=== PATIENT | female | born 1975 | race Caucasian/White ===

== ENCOUNTER → 2016-09-07 | Outpatient (REF) | payer OTHER | LOC: M LAB REF 12:33 | PROVIDERS: ATTEND Physician Assistant | DX: J02.9 Acute pharyngitis, unspecified (principal) ==

== ENCOUNTER → 2018-02-04 | Outpatient (CLI) | payer BC | LOC: M RAD 10:56 | DX: Z12.31 Encounter for screening mammogram for malignant neoplasm of breast (principal) | CPT/HCPCS: 77067 ==

== ENCOUNTER → 2018-10-05 | Outpatient (CLI) | payer BC ==
--- NOTE | 2018-10-05 17:21 | REP ---
Clinical: thoracic pain. Technique: AP, lateral, and swimmers views. Findings: Alignment and kyphosis is maintained. Vertebral bodies intact. No acute fracture / compression injury or subluxation. Generalized age-related changes noted. Paravertebral soft tissues are normal. Impression: No acute fracture / compression injury or subluxation. Electronically Signed by Anton Pfeiffer MD 10/05/2018 05:13 P
== END ==
LOC: M LRY 16:43
PROVIDERS: ATTEND Physician Assistant Medical
DX: M54.6 Pain in thoracic spine (principal); Z91.81 History of falling

== ENCOUNTER → 2019-04-12 | Outpatient (CLI) | payer BC ==
--- NOTE | 2019-04-12 11:01 | REPMRS ---
Patient History The patient states she had a clinical breast exam in 2018.Family history of breast cancer at age 60 in maternal grandmother. Taking estrogen for 8 years. Digital Mammo Screening Bilat: April 12, 2019 - Exam #: [id number] Bilateral CC and MLO view(s) were taken. Technologist: Jade Haas Technologist Prior study comparison: February 04, 2018, bilateral digital mammo screening bilat performed at [facility]. FINDINGS: The breast tissue is heterogeneously dense. This may lower the sensitivity of mammography. There has been no change in the appearance of the mammogram from the prior studies. There is a moderate amount of residual fibroglandular tissue which is fairly symmetric. There is no interval development of dominant mass, areas of architectural distortion, or clustered microcalcification typical of malignancy. Assessment: BI-RADS/ACR category 1 mammogram. Negative Mammogram. Recommendation Routine screening mammogram in 1 year (for women over age 40). This mammogram was interpreted with the aid of an FDA-approved computer-aided dectection system. Electronically Signed By: Jorgito Rose MD 04/12/19 [id number]
== END ==
LOC: M RAD 10:05
PROVIDERS: ATTEND Obstetrics & Gynecology
DX: Z12.31 Encounter for screening mammogram for malignant neoplasm of breast (principal)

== ENCOUNTER → 2020-11-21 | Outpatient (CLI) | payer BC ==
--- NOTE | 2020-11-21 14:16 | REPMRS ---
Patient History The patient states she had a clinical breast exam in October 2020. Family history of breast cancer at age 60 in maternal grandmother. Taking estrogen for 9 years. Digital Woman Screen Mammo: November 21, 2020 - Exam #: [id number] Bilateral CC and MLO view(s) were taken. Technologist: Brynn Edwards RT Prior study comparison: April 12, 2019, bilateral digital mammo screening bilat, performed at [facility]. February 04, 2018, bilateral digital mammo screening bilat, performed at [facility]. FINDINGS: There are scattered fibroglandular densities. The Volpara volumetric breast density category is:B. There has been no change in the appearance of the mammogram from the prior studies. There is a mild amount of scattered fibroglandular density which is fairly symmetric. There is no interval development of dominant mass, architectural distortion, or grouped microcalcification suggestive of malignancy. 3-D tomosynthesis shows no additional findings. Assessment: BI-RADS/ACR category 1 mammogram. Negative Mammogram. Recommendation Routine screening mammogram of both breasts in 1 year (for women over age 40). This patient's [facility] Lifetime Breast Cancer Risk is estimated at 12.4 %. This mammogram was interpreted with the aid of an FDA-approved computer-aided dectection system. Electronically Signed By: Jacob Adam MD 11/21/20 [id number]
== END ==
LOC: M WHC 12:55
PROVIDERS: ATTEND Obstetrics & Gynecology
DX: Z12.31 Encounter for screening mammogram for malignant neoplasm of breast (principal)

== ENCOUNTER → 2023-11-02 | Outpatient (CLI) | payer BC | LOC: M WHC 13:34 | PROVIDERS: ATTEND Obstetrics & Gynecology | DX: Z12.31 Encounter for screening mammogram for malignant neoplasm of breast (principal) ==